=== PATIENT | male | born 1980 | race Caucasian/White ===

== ENCOUNTER 2017-09-21 08:56 | Emergency (ER) | payer OTHER, MEDICAID ==
[2017-09-21 09:12] VITALS: BP 114/78; PULSE 95; RESP 18; TEMP 98.2; O2SAT 94
--- NOTE | 2017-09-21 09:24 | EDPHY ---
H & P Time Seen by Provider: 09/21/17 09:15 HPI/ROS: CHIEF COMPLAINT: Cough URI symptoms x2 weeks HISTORY OF PRESENT ILLNESS: 36-year-old homeless male complaining of 2 weeks of URI symptoms including sore throat, intermittently productive cough. No dyspnea. No fever or chills. No chest pain. No nausea or vomiting. No diarrhea. PRIMARY CARE PROVIDER: [facility] REVIEW OF SYSTEMS: A ten point review of systems was performed and is negative with the exception of the items mentioned in the HPI PAST MEDICAL & SURGICAL HISTORY: No history of chronic pulmonary disease. No influenza vaccination SOCIAL HISTORY:1 pack per day tobacco Homeless. PHYSICAL EXAM (Prior to examination, patient consented to physical exam, hands were washed and my usual and customary physical exam procedures followed) 1) GENERAL: Well-developed, well-nourished, alert and oriented. Appears to be in no acute distress. 2) HEAD: Normocephalic, atraumatic 3) HEENT: Pupils equal, round, reactive to light bilaterally. Sclera anicteric. Nasopharynx, oropharynx, clear, no lesions. No tonsillar enlargement or exudate. Ears bilaterally with normal tympanic membranes. 4) NECK: Full range of motion, no meningeal signs. 5) LUNGS: Clear auscultation bilaterally, no wheezes, no rhonchi, no retractions. 6) HEART: Regular rate and rhythm, no murmur, no heave, no gallop. 7) ABDOMEN: No guarding, no rebound, no focal tenderness, negative McBurney's, negative Cruz's, negative Rovsing's, negative peritoneal sign, 8) MUSCULOSKELETAL: Moving all extremities, no focal areas of tenderness, no obvious trauma. No peripheral edema or discoloration. 9) BACK: No CVA tenderness, no midline vertebral tenderness, no fluctuance, no step-off, no obvious trauma, no visual or palpable abnormality. 10) SKIN: No rash, no petechiae. 11) Psychiatric: Patient is oriented X 3, there is no agitation. DIFFERENTIAL DIAGNOSIS: In no particular include but limited to bronchitis, pneumonia, influenza Smoking Status: Current every day smoker Constitutional: Initial Vital Signs Temperature (C) 36.8 C 09/21/17 09:08 Heart Rate 95 09/21/17 09:08 Respiratory Rate 18 09/21/17 09:08 Blood Pressure 114/78 09/21/17 09:08 O2 Sat (%) 94 09/21/17 09:08 O2 Delivery Mode Room Air Allergies/Adverse Reactions: Penicillins Allergy (Verified 09/21/17 09:08) Home Medications: Medication Instructions Recorded Albuterol [Proventil Inhaler HFA 1 - 2 puffs IH Q4PRN PRN #1 mdi 09/21/17 (*)] Azithromycin 500 mg PO DAILY #1 packet 09/21/17 Benzonatate [Tessalon Pearles (RX)] 200 mg PO TID PRN #15 cap 09/21/17 MDM/Departure - [facility] ED Course/Re-evaluation: I do not identify indication for chest x-ray as the patient's lungs are clear bilaterally, has a normal pulse ox, speaking full sentences, no signs of respiratory distress. Given the patient's symptoms of 2 weeks of think a trial of antibiotics is appropriate. He is also a daily cigarette smoker. I spent greater than 3 min discussing smoking cessation with the patient. The patient understands that this diagnosis is provisional and can never be 100% accurate. Usual and customary warnings were given concerning the clinical impression and all the patient's questions were answered. The patient was instructed to return to the emergency department should her symptoms worsen or return, or develop any new symptoms, otherwise to followup as directed in discharge instructions. Care of patient under supervision of secondary supervising physician Dr Simon Rose. - Depart Disposition: Home, Routine, Self-Care Clinical Impression: Upper respiratory infection Qualifiers: URI type: unspecified URI Qualified Code(s): J06.9 - Acute upper respiratory infection, unspecified Condition: Good Instructions: Upper Respiratory Infection (ED) Additional Instructions: Return to the emergency department immediately for change in breathing habits, change in voice, change in swallowing habits, change in mental status, or any other symptoms that concern you. Prescriptions: Albuterol [Proventil Inhaler HFA (*)] 1 - 2 puffs IH Q4PRN PRN #1 mdi PRN Reason: Cough, Moderate Azithromycin 500 mg PO DAILY #1 packet Benzonatate [Tessalon Pearles (RX)] 200 mg PO TID PRN #15 cap PRN Reason: Cough, Moderate Referrals: [facility],. [Clinic] - 1-2 days without fail
== END 2017-09-21 09:45 | disposition home or self-care (01) ==
DX: J06.9 Acute upper respiratory infection, unspecified (principal); F17.200 Nicotine dependence, unspecified, uncomplicated